=== PATIENT | female | born 1960 ===

== ENCOUNTER 2017-12-13 14:33 | Emergency (ER) | payer SELFPAY ==
[2017-12-13 14:43] VITALS: TEMP 98.3; O2SAT 99
--- NOTE | 2017-12-13 15:13 | ED PDOC ---
HPI: Abdomen Time Seen by Provider: 12/13/17 15:11 Chief Complaint (Nursing): Abdominal Pain Chief Complaint (Provider): abd pain History Per: Patient Additional Complaint(s): 57-year-old female with history of hypertension and high blood pressure presents to ED with right upper quadrant pain 3 weeks associated with nausea but no vomiting. Patient states pain radiates into her back. She also states the pain radiates to right shoulder. Pain has increased in severity in the past few days prompting ED visit today. No fever or chills, no chest pain, shortness of breath or dyspnea on exertion. PMD: [facility] Past Medical History Reviewed: Historical Data, Nursing Documentation, Vital Signs Vital Signs: Last Vital Signs Temp 98.3 F 12/13/17 14:39 Pulse 84 12/13/17 14:39 Resp 18 12/13/17 14:39 BP 193/81 H 12/13/17 14:39 Pulse Ox 99 12/13/17 16:33 - Medical History PMH: Diabetes, HTN - Surgical History Other surgeries: right breast biopsy - Family History Family History: States: No Known Family Hx - Living Arrangements Living Arrangements: With Family - Social History Current smoker - smoking cessation education provided: No Alcohol: None Drugs: Denies - Home Medications Home Medications: Ambulatory Orders Medication Instructions Recorded Lansoprazole [Prevacid] 30 mg PO DAILY #30 tab 12/13/17 Nitrofurantoin Macrocrystals 100 mg PO BID #14 cap 12/13/17 [Macrobid] Ondansetron [Zofran Odt] 4 mg PO ASDIR PRN #10 odt 12/13/17 - Allergies Allergies/Adverse Reactions: Allergies Allergy/AdvReac Type Severity Reaction Status Date / Time No Known Allergies Allergy Verified 12/13/17 14:39 Review of Systems ROS Statement: Except As Marked, All Systems Reviewed And Found Negative Constitutional: Negative for: Fever, Chills Cardiovascular: Negative for: Chest Pain Respiratory: Negative for: Cough Gastrointestinal: Positive for: Nausea, Abdominal Pain. Negative for: Vomiting , Diarrhea, Constipation Genitourinary Female: Negative for: Dysuria Physical Exam - Reviewed Nursing Documentation Reviewed: Yes Vital Signs Reviewed: Yes - Physical Exam Appears: Positive for: Well Skin: Positive for: Normal Color. Negative for: Rash Eye Exam: Positive for: Normal appearance Cardiovascular/Chest: Positive for: Regular Rate, Rhythm Respiratory: Positive for: Normal Breath Sounds. Negative for: Wheezing, Respiratory Distress Gastrointestinal/Abdominal: Positive for: Other (Obese abdomen with tenderness to right upper quadrant and epigastric region, no rebound or guarding, normoactive bowel sounds in all 4 quadrants) Back: Negative for: L CVA Tenderness, R CVA Tenderness Extremity: Positive for: Normal ROM Neurologic/Psych: Positive for: Alert, Oriented - Laboratory Results Result Diagrams: 12/13/17 15:59 12/13/17 15:59 - ECG Interpretation Of ECG: Sinus rhythm 80 bpm with fusion complexes, reviewed by PA and ED attending O2 Sat by Pulse Oximetry: 99 Pulse Ox Interpretation: Normal - Other Rad CXR X-Ray: Interpreted by Me, Viewed By Me X-Ray Interpretation: no acute finding Abd US X-Ray: Read By Radiologist X-Ray Interpretation: see below Medical Decision Making Medical Decision Makin57 year old female with upper abd pain Plan: CXR EKG CBC CMP Lipase UA IVF IV zofran Abd US US: FINDINGS: LIVER: Measures 13.5 cm in length. Increased echogenicity of the liver parenchyma. No mass. No intrahepatic bile duct dilatation. GALLBLADDER: Unremarkable. No gallstones. COMMON BILE DUCT: Measures 6 mm. No stones. No dilatation. PANCREAS: Unremarkable as visualized. No mass. o ductal dilatation. RIGHT KIDNEY: Measures 13.5 x 5.8 x 4.9 cm in length. Normal echogenicity. No calculus, mass, or hydronephrosis. AORTA: No aneurysmal dilatation. IVC: Unremarkable. OTHER FINDINGS: None. IMPRESSION: Hepatic steatosis. Otherwise, unremarkable right upper quadrant ultrasound Patient is aware of all diagnostic testing results, all questions answered. Patient feels better after Zofran was given. Mild UTI noted, Macrobid prescription provided. Patient was given rx prescription for Prevacid and was also given dietary instructions for relief of gastritis symptoms. Patient was advised to follow-up with clinic to obtain referral to cork insulation setter. Patient also aware she can return to ED any time if acutely worse. Disposition - Clinical Impression Clinical Impression: Gastritis, Urinary tract infection - Patient ED Disposition Is Patient to be Admitted: No Counseled Patient/Family Regarding: Studies Performed, Diagnosis, Need For Followup, Rx Given - Disposition Referrals: [facility] [Outside] Disposition: Routine/Home Disposition Time: 18:55 Condition: STABLE Additional Instructions: Follow dietary instructions and take prescription meds as directed. Follow up with clinic to arrange for follow-up with cork insulation setter. Prescriptions: Lansoprazole [Prevacid] 30 mg PO DAILY #30 tab Nitrofurantoin Macrocrystals [Macrobid] 100 mg PO BID #14 cap Ondansetron [Zofran Odt] 4 mg PO ASDIR PRN #10 odt PRN Reason: Nausea/Vomiting Instructions: Gastritis, Ulcer and Gastritis Diet, Urinary Tract Infections in Adults Forms: [employer] (Citizen Of [place]) Results - Lab Results Lab Results: 12/13/17 12/13/17 12/13/17 16:03 15:59 15:59 WBC 9.2 RBC 4.25 Hgb 11.6 L Hct 35.4 MCV 83.4 MCH 27.3 MCHC 32.8 L RDW 15.7 H Plt Count 223 MPV 8.6 Neut % (Auto) 54.3 Lymph % (Auto) 37.5 Nicholas % (Auto) 6.3 Eos % (Auto) 1.3 Baso % (Auto) 0.6 Neut # (Auto) 5.0 Lymph # (Auto) 3.4 Nicholas # (Auto) 0.6 Eos # (Auto) 0.1 Baso # (Auto) 0.1 Sodium 137 Potassium 4.8 Chloride 103 Carbon Dioxide 24 Anion Gap 15 BUN 12 Creatinine 0.6 L Est GFR ( Amer) > 60 Est GFR (Non-Af Amer) > 60 Random Glucose 286 H Calcium 9.9 Total Bilirubin 0.3 AST 28 ALT 33 Alkaline Phosphatase 63 Total Protein 6.9 Albumin 4.1 Globulin 2.8 Albumin/Globulin Ratio 1.5 Lipase 84 Urine Color Yellow Urine Clarity Slighty-cloudy Urine pH 6.0 Ur Specific [place] 1.016 Urine Protein Negative Urine Glucose (UA) >=500 Urine Ketones Negative Urine Blood Negative Urine Nitrate Negative Urine Bilirubin Negative Urine Urobilinogen 0.2-1.0 Ur Leukocyte Esterase Trace Urine RBC (Auto) 3 Urine Microscopic WBC 6 H Ur Squamous Epith Cells 1 Urine Bacteria Rare
[2017-12-13] MEDS ORDERED: Sodium Chloride 0.9% 1,000 ML IV STA (15:31)
[2017-12-13 16:04] LABS: BASO # 0.1 K/uL (0.0-0.2); BASO % 0.6 % (0.0-2.0); EOS # 0.1 K/uL (0.0-0.7); EOS % 1.3 % (0.0-4.0); HEMOGLOBIN 11.6 g/dL (12.0-16.0); LYMPH # 3.4 K/uL (1.0-4.3); LYMPH % 37.5 % (20.0-40.0); MEAN CELL VOLUME 83.4 fl (81.0-99.0); MEAN CORPUSCULAR HEMOGLOBIN 27.3 pg (27.0-31.0); MEAN CORPUSCULAR HGB CONC 32.8 g/dL (33.0-37.0); MEAN PLATELET VOLUME 8.6 fl (7.2-11.7); MONO # 0.6 K/uL (0.0-0.8); MONO % 6.3 % (0.0-10.0); NEUT % 54.3 % (50.0-75.0); RBC 4.25 Mil/uL (3.80-5.20); RED CELL DISTRIBUTION WIDTH 15.7 % (11.5-14.5); WHITE BLOOD COUNT 9.2 K/uL (4.8-10.8)
--- NOTE | 2017-12-13 16:09 | RAD ---
Date of service: 12/13/2017 HISTORY: Upper abdominal pain. COMPARISON: No prior. FINDINGS: LUNGS: No active pulmonary disease. PLEURA: No significant pleural effusion identified, no pneumothorax apparent. CARDIOVASCULAR: No radiographic findings to suggest acute or significant cardiovascular disease. OSSEOUS STRUCTURES: No significant abnormalities. VISUALIZED UPPER ABDOMEN: Normal. OTHER FINDINGS: None. IMPRESSION: No active disease.
[2017-12-13 16:16] LABS: SQUAMOUS EPITHIAL 1 /hpf (0-5); URINE BACTERIA RARE (<OCC); URINE BILIRUBIN NEGATIVE (NEGATIVE); URINE BLOOD NEGATIVE (NEGATIVE); URINE CLARITY SLIGHTY-CLOUDY (Clear); URINE COLOR YELLOW (YELLOW); URINE GLUCOSE (UA) >=500 mg/dL (Normal); URINE LEUKOCYTE ESTERASE TRACE Leu/uL (Negative); URINE PROTEIN NEGATIVE (NEGATIVE); URINE UROBILINOGEN 0.2-1.0 mg/dL (0.2-1.0)
[2017-12-13 16:16] LABS: ALB/GLOB RATIO 1.5 (1.0-2.1); ALBUMIN 4.1 g/dL (3.5-5.0); ALT/SGPT 33 U/L (9-52); AST/SGOT 28 U/L (14-36); BLOOD UREA NITROGEN 12 mg/dl (7-17); CALCIUM 9.9 mg/dL (8.4-10.2); GFR AFRICAN-AMERICAN > 60; GFR NON-AFRICAN AMERICAN > 60; LIPASE 84 U/L (23-300)
--- NOTE | 2017-12-13 17:54 | US ---
Date of service: 12/13/2017 HISTORY: upper abd pain, nausea COMPARISON: None. TECHNIQUE: Sonographic evaluation of the right upper quadrant of the abdomen. FINDINGS: LIVER: Measures 13.5 cm in length. Increased echogenicity of the liver parenchyma. No mass. No intrahepatic bile duct dilatation. GALLBLADDER: Unremarkable. No gallstones. COMMON BILE DUCT: Measures 6 mm. No stones. No dilatation. PANCREAS: Unremarkable as visualized. No mass. No ductal dilatation. RIGHT KIDNEY: Measures 13.5 x 5.8 x 4.9 cm in length. Normal echogenicity. No calculus, mass, or hydronephrosis. AORTA: No aneurysmal dilatation. IVC: Unremarkable. OTHER FINDINGS: None . IMPRESSION: Hepatic steatosis. Otherwise, unremarkable right upper quadrant ultrasound
[2017-12-13 19:19] VITALS: BP 150/70; PULSE 86; RESP 17
--- NOTE | 2017-12-14 14:58 | CARD ---
APPROVED REPORT Date of service: 12/13/2017 EKG Measurement Heart [id number] <Conclusion> Sinus rhythm with fusion complexes Otherwise normal ECG
== END 2017-12-13 19:15 | disposition home or self-care (01) ==
LOC: H.ER 14:33
DX: K29.70 Gastritis, unspecified, without bleeding (principal); N39.0 Urinary tract infection, site not specified; E11.9 Type 2 diabetes mellitus without complications; I10 Essential (primary) hypertension; K76.0 Fatty (change of) liver, not elsewhere classified
CPT/HCPCS: 71045; 76705; 80053; 81003; 83690; 85025; 87086; 93005; 96374; 99283; J2405; J7030

== ENCOUNTER 2017-12-25 14:25 | Emergency (ER) | payer SELFPAY ==
[2017-12-25] MEDS ORDERED: Sodium Chloride 0.9% 1,000 ML IV STA (15:30)
--- NOTE | 2017-12-25 15:56 | ED PDOC ---
HPI: Female Pain Time Seen by Provider: 12/25/17 14:52 Chief Complaint (Nursing): Female Genitourinary Chief Complaint (Provider): Female Genitourinary History Per: Patient History/Exam Limitations: no limitations Onset/Duration Of Symptoms: Days Current Symptoms Are (Timing): Still Present Quality Of Discomfort: "Pain" Associated Symptoms: Urinary Symptoms Additional Complaint(s): 57 y/o female with a PMHx of diabetes presents to the ED complaining of dysuria and frequency associated with right sided back pain. Patient reports of having finished a 7 day course of Macrobid for a UTI approximately one week ago. However, patient states pain persists and is here for further evaluation. Denies fever, nausea, vomiting, abdominal pain, and hematuria. PMD: [facility] Past Medical History Reviewed: Historical Data, Nursing Documentation, Vital Signs Vital Signs: Last Vital Signs Temp 97.0 F L 12/25/17 14:37 Pulse 87 12/25/17 14:37 Resp 18 12/25/17 14:37 BP 143/73 12/25/17 14:37 Pulse Ox 99 12/25/17 14:37 - Medical History PMH: Diabetes, HTN - Surgical History Surgical History: No Surg Hx - Family History Family History: States: Unknown Family Hx - Social History Current smoker - smoking cessation education provided: No Alcohol: None Drugs: Denies - Immunization History Hx Tetanus Toxoid Vaccination: Yes Hx Influenza Vaccination: Yes Hx Pneumococcal Vaccination: No - Home Medications Home Medications: Ambulatory Orders Medication Instructions Recorded Lansoprazole [Prevacid] 30 mg PO DAILY #30 tab 12/13/17 Nitrofurantoin Macrocrystals 100 mg PO BID #14 cap 12/13/17 [Macrobid] Ondansetron [Zofran Odt] 4 mg PO ASDIR PRN #10 odt 12/13/17 Cephalexin [cephalexin] 500 mg PO QID #27 cap 12/25/17 Phenazopyridine [Pyridium] 200 mg PO TID PRN #6 tab 12/25/17 - Allergies Allergies/Adverse Reactions: Allergies Allergy/AdvReac Type Severity Reaction Status Date / Time No Known Allergies Allergy Verified 12/13/17 14:39 Review of Systems ROS Statement: Except As Marked, All Systems Reviewed And Found Negative Constitutional: Negative for: Fever Gastrointestinal: Negative for: Nausea, Vomiting, Abdominal Pain Genitourinary Female: Positive for: Dysuria, Frequency. Negative for: Hematuria Musculoskeletal: Positive for: Back Pain (right-sided back pain) Physical Exam - Reviewed Nursing Documentation Reviewed: Yes Vital Signs Reviewed: Yes - Physical Exam Appears: Positive for: Non-toxic, No Acute Distress Head Exam: Positive for: ATRAUMATIC, NORMOCEPHALIC Skin: Positive for: Normal Color, Warm, Dry Eye Exam: Positive for: Normal appearance, EOMI, PERRL Neck: Positive for: Normal, Painless ROM Cardiovascular/Chest: Positive for: Regular Rate, Rhythm. Negative for: Murmur Respiratory: Positive for: Normal Breath Sounds. Negative for: Respiratory Distress Gastrointestinal/Abdominal: Positive for: Normal Exam, Soft, Tenderness (Mild right upper quadrant ) Back: Positive for: Normal Inspection, R CVA Tenderness. Negative for: L CVA Tenderness, Vertebral Tenderness Extremity: Positive for: Normal ROM. Negative for: Pedal Edema, Deformity Neurologic/Psych: Positive for: Alert, Oriented. Negative for: Motor/Sensory Deficits - Laboratory Results Result Diagrams: 12/25/17 15:44 12/25/17 15:44 - ECG O2 Sat by Pulse Oximetry: 99 (RA) Pulse Ox Interpretation: Normal Medical Decision Making Medical Decision Making: Time: 1530 Plan: -- CT Abd/Pelvis w/o PO or IV Contrast -- ED Urine Dipstick -- Glucose, POC Routine Time: 1544 Plan: -- CMP -- CBC with differentials -- Sodium Chloride IV 1000 mls/hr -- Urine Culture -- Urinalysis Time: 1718 CT RESULTS FINDINGS: LOWER THORAX: Heart size normal. There is a small hiatal hernia with minimal wall thickening of the distal esophagus likely due to protrusion gastric mucosa. Lung bases clear. Minor atelectasis and or scarring changes seen in the middle lobe region. No focal consolidation. No evidence of LIVER: Liver is mildly enlarged measuring nearly 23 cm in CC dimension. No obvious hepatic mass or collection identified on this noncontrast study. . GALLBLADDER AND BILE DUCTS: Gallbladder appears to be present of collapsed likely due to nonfasting state. No obvious intraluminal gallbladder calculi identified at this time. PANCREAS: The unenhanced pancreas appears grossly unremarkable without masses collections or calcifications. No significant pancreatic ductal dilatation. SPLEEN: Spleen exhibits relatively normal size and attenuation pattern without mass collection or calcification. ADRENALS: No adrenal lesions are identified. KIDNEYS AND URETERS: The kidneys demonstrate relatively symmetric size. No evidence of nephrolithiasis or hydronephrosis. VASCULATURE: No definitive evidence of abdominal aortic aneurysm however note that the distal abdominal aorta is poorly seen due to the lack of oral and intravenous contrast material. BOWEL: Evaluation of the bowel is limited due to the lack of oral contrast material. Stomach is incompletely distended which presumably accounts for slight thick- walled appearance. Gastritis or other intrinsic/invasive wall lesion not excluded. Visualized loops of small bowel exhibit relatively normal contour and caliber of. No evidence of acute mechanical small bowel obstruction. Stool and air seen throughout the large bowel APPENDIX: Distal appendix exhibits increased attenuation possibly representing some inspissated debris versus early microcalcification. The appendix is otherwise unremarkable exhibiting normal caliber with no wall edema or perineum appendiceal inflammatory changes. PERITONEUM: Unremarkable. No free fluid. No free air. LYMPH NODES: Unremarkable. No enlarged lymph nodes. BLADDER: The urinary bladder is physiologically distended. No evidence of intraluminal urinary bladder calculi. REPRODUCTIVE: Aside from what appear to represent peripheral vascular calcifications uterus is otherwise unremarkable BONES: Minor multilevel degenerative spondylosis of the lower thoracic and lumbar spine. OTHER FINDINGS: None. IMPRESSION: No acute intra abdominal pathology. Splenomegaly. The at distal aspect of the appendix that exhibits increased attenuation possibly due to inspissated debris or microcalcification however no radiographic evidence of acute appendicitis. Pt given copy of CT report. ___ Scribe Attestation: Documented by Bert Rodríguez acting as a scribe for Dr. Lorena To MD. Provider Scribe Attestation: All medical record entries made by the Scribe were at my direction and personally dictated by me. I have reviewed the chart and agree that the record accurately reflects my personal performance of the history, physical exam, medical decision making, and the department course for this patient. I have also personally directed, reviewed, and agree with the discharge instructions and disposition. Disposition - Clinical Impression Clinical Impression: Urinary tract infection - Disposition Disposition: Routine/Home Disposition Time: 18:05 Condition: STABLE Additional Instructions: FOLLOW-UP WITH PMD WITHIN 2 DAYS FOR REEVALUATION. Prescriptions: Cephalexin [cephalexin] 500 mg PO QID #27 cap Phenazopyridine [Pyridium] 200 mg PO TID PRN #6 tab PRN Reason: Bladder Spasm Instructions: Urinary Tract Infections in Adults Forms: [facility] ([place]ic)
[2017-12-25 15:58] LABS: ALBUMIN 3.9 g/dL (3.5-5.0); BLOOD UREA NITROGEN 12 mg/dl (7-17); CALCIUM 9.1 mg/dL (8.4-10.2); GFR AFRICAN-AMERICAN > 60; GFR NON-AFRICAN AMERICAN > 60
[2017-12-25 15:59] LABS: ALB/GLOB RATIO 1.4 (1.0-2.1); ALT/SGPT 34 U/L (9-52); AST/SGOT 27 U/L (14-36)
[2017-12-25 16:00] LABS: SQUAMOUS EPITHIAL 1 /hpf (0-5); URINE BILIRUBIN NEGATIVE (NEGATIVE); URINE BLOOD NEGATIVE (NEGATIVE); URINE CLARITY SLIGHTY-CLOUDY (Clear); URINE COLOR YELLOW (YELLOW); URINE GLUCOSE (UA) 50 mg/dL (Normal); URINE LEUKOCYTE ESTERASE SMALL Leu/uL (Negative); URINE PROTEIN 30 mg/dL (NEGATIVE); URINE UROBILINOGEN 0.2-1.0 mg/dL (0.2-1.0)
[2017-12-25 16:24] LABS: BASO # 0.1 K/uL (0.0-0.2); EOS # 0.1 K/uL (0.0-0.7); EOS % 1.5 % (0.0-4.0); HEMOGLOBIN 11.1 g/dL (12.0-16.0); LYMPH # 3.1 K/uL (1.0-4.3); LYMPH % 36.6 % (20.0-40.0); MEAN CELL VOLUME 84.2 fl (81.0-99.0); MEAN CORPUSCULAR HGB CONC 32.1 g/dL (33.0-37.0); MEAN PLATELET VOLUME 9.2 fl (7.2-11.7); MONO # 0.5 K/uL (0.0-0.8); MONO % 6.3 % (0.0-10.0); NEUT # 4.7 K/uL (1.8-7.0); NEUT % 54.6 % (50.0-75.0); NRBC % 0.2 % (0.0-0.0); RBC 4.1 Mil/uL (3.80-5.20); RED CELL DISTRIBUTION WIDTH 16.5 % (11.5-14.5); WHITE BLOOD COUNT 8.6 K/uL (4.8-10.8)
--- NOTE | 2017-12-25 17:19 | CT ---
Date of service: 12/25/2017 PROCEDURE: CT Abdomen and Pelvis without intravenous contrast HISTORY: R flank pain, dysuria, hematuria COMPARISON: No prior study available comparison however correlation made with limited abdominal ultrasound 12/13/2017. TECHNIQUE: Contiguous helical/transaxial sections of the abdomen pelvis performed without oral or intravenous contrast material. Additional 2D sagittal and coronal reformats generated. Radiation dose: Total exam DLP = 817.7 mGy-cm. This CT exam was performed using one or more of the following dose reduction techniques: Automated exposure control, adjustment of the mA and/or kV according to patient size, and/or use of iterative reconstruction technique. FINDINGS: LOWER THORAX: Heart size normal. There is a small hiatal hernia with minimal wall thickening of the distal esophagus likely due to protrusion gastric mucosa. Lung bases clear. Minor atelectasis and or scarring changes seen in the middle lobe region. No focal consolidation. No evidence of LIVER: Liver is mildly enlarged measuring nearly 23 cm in CC dimension. No obvious hepatic mass or collection identified on this noncontrast study. . GALLBLADDER AND BILE DUCTS: Gallbladder appears to be present of collapsed likely due to nonfasting state. No obvious intraluminal gallbladder calculi identified at this time. PANCREAS: The unenhanced pancreas appears grossly unremarkable without masses collections or calcifications. No significant pancreatic ductal dilatation. SPLEEN: Spleen exhibits relatively normal size and attenuation pattern without mass collection or calcification. ADRENALS: No adrenal lesions are identified. KIDNEYS AND URETERS: The kidneys demonstrate relatively symmetric size. No evidence of nephrolithiasis or hydronephrosis. VASCULATURE: No definitive evidence of abdominal aortic aneurysm however note that the distal abdominal aorta is poorly seen due to the lack of oral and intravenous contrast material. BOWEL: Evaluation of the bowel is limited due to the lack of oral contrast material. Stomach is incompletely distended which presumably accounts for slight thick-walled appearance. Gastritis or other intrinsic/invasive wall lesion not excluded. Visualized loops of small bowel exhibit relatively normal contour and caliber of. No evidence of acute mechanical small bowel obstruction. Stool and air seen throughout the large bowel APPENDIX: Distal appendix exhibits increased attenuation possibly representing some inspissated debris versus early microcalcification. The appendix is otherwise unremarkable exhibiting normal caliber with no wall edema or perineum appendiceal inflammatory changes. PERITONEUM: Unremarkable. No free fluid. No free air. LYMPH NODES: Unremarkable. No enlarged lymph nodes. BLADDER: The urinary bladder is physiologically distended. No evidence of intraluminal urinary bladder calculi. REPRODUCTIVE: Aside from what appear to represent peripheral vascular calcifications uterus is otherwise unremarkable BONES: Minor multilevel degenerative spondylosis of the lower thoracic and lumbar spine. OTHER FINDINGS: None. IMPRESSION: No acute intra abdominal pathology. Splenomegaly. The at distal aspect of the appendix that exhibits increased attenuation possibly due to inspissated debris or microcalcification however no radiographic evidence of acute appendicitis.
[2017-12-25] MEDS ORDERED: Povidone Iodine Oint 10% Foilpak UD ONE (17:51)
[2017-12-25 18:45] VITALS: BP 120/70; PULSE 84; RESP 20; TEMP 98
[2017-12-26 15:53] VITALS: O2SAT 99
== END 2017-12-25 18:45 | disposition home or self-care (01) ==
LOC: H.ER 14:25
DX: N39.0 Urinary tract infection, site not specified (principal); I10 Essential (primary) hypertension; E11.9 Type 2 diabetes mellitus without complications
CPT/HCPCS: 74176; 80053; 81003; 82948; 85025; 87086; 96360; 99284; J7030

== ENCOUNTER 2018-06-17 19:05 | Emergency (ER) | payer SELFPAY ==
[2018-06-17 19:18] VITALS: TEMP 98.4
[2018-06-17] MEDS ORDERED: Sodium Chloride 0.9% 500 ML IV STA (19:43)
[2018-06-17] MEDS ORDERED: Albuterol-Ipratrop 3 mg / 0.5 (3 ml) UD INH STA (19:43)
--- NOTE | 2018-06-17 19:49 | ED PDOC ---
HPI: Female Pain Time Seen by Provider: 06/17/18 19:39 Chief Complaint (Nursing): Shortness Of Breath Chief Complaint (Provider): Dysuria History Per: Patient History/Exam Limitations: no limitations Onset/Duration Of Symptoms: Days (today) Current Symptoms Are (Timing): Still Present Additional Complaint(s): Pt. with dysuria, freq urination, urgency. Also has cough, congestion, dyspnea (gone now). No fever, chills, abd pain. Feels bloated. No nausea, vomit, diarrhea. No back pain. No chest pain. Past Medical History Reviewed: Nursing Documentation, Vital Signs Vital Signs: Last Vital Signs Temp 98.4 F 06/17/18 19:15 Pulse 96 H 06/17/18 19:15 Resp 16 06/17/18 19:15 BP Pulse Ox 98 06/17/18 19:15 - Medical History PMH: Diabetes, HTN - Surgical History Surgical History: No Surg Hx - Family History Family History: States: Unknown Family Hx - Immunization History Hx Tetanus Toxoid Vaccination: Yes Hx Influenza Vaccination: Yes Hx Pneumococcal Vaccination: No - Home Medications Home Medications: Ambulatory Orders Medication Instructions Recorded Lansoprazole [Prevacid] 30 mg PO DAILY #30 tab 12/13/17 Nitrofurantoin Macrocrystals 100 mg PO BID #14 cap 12/13/17 [Macrobid] Ondansetron [Zofran Odt] 4 mg PO ASDIR PRN #10 odt 12/13/17 Cephalexin [cephalexin] 500 mg PO QID #27 cap 12/25/17 Phenazopyridine [Pyridium] 200 mg PO TID PRN #6 tab 12/25/17 Albuterol Sulfate [Proair Hfa] 0.09 mg IH Q6H PRN #2 inh 06/17/18 Nitrofurantoin Macrocrystals 100 mg PO BID #10 cap 06/17/18 [Macrobid] - Allergies Allergies/Adverse Reactions: Allergies Allergy/AdvReac Type Severity Reaction Status Date / Time No Known Allergies Allergy Verified 06/17/18 19:15 Review of Systems ROS Statement: Except As Marked, All Systems Reviewed And Found Negative ENT: Positive for: Nose Congestion Respiratory: Positive for: Cough, Shortness of Breath Gastrointestinal: Negative for: Nausea, Vomiting, Abdominal Pain Genitourinary Female: Positive for: Dysuria, Frequency. Negative for: Hematuria, Pelvic Pain Neurological: Negative for: Weakness Physical Exam - Reviewed Nursing Documentation Reviewed: Yes Vital Signs Reviewed: Yes - Physical Exam Appears: Positive for: Non-toxic, No Acute Distress Head Exam: Positive for: ATRAUMATIC, NORMAL INSPECTION, NORMOCEPHALIC Skin: Positive for: Normal Color, Warm, DRY Eye Exam: Positive for: EOMI, Normal appearance, PERRL ENT: Positive for: Normal ENT Inspection Neck: Positive for: Normal, Painless ROM Cardiovascular/Chest: Positive for: Regular Rate, Rhythm Respiratory: Positive for: CNT, Normal Breath Sounds Gastrointestinal/Abdominal: Positive for: Normal Exam, Soft. Negative for: Tenderness Back: Positive for: Normal Inspection. Negative for: L CVA Tenderness, R CVA Tenderness Extremity: Positive for: Normal ROM. Negative for: Tenderness, Pedal Edema Neurologic/Psych: Positive for: Alert, Oriented - Laboratory Results Result Diagrams: 06/17/18 20:12 06/17/18 20:12 Lab Results: 291 glucose - ECG ECG: Positive for: Interpreted By Me, Viewed By Me ECG Rhythm: Positive for: Normal QRS, Normal ST Segment, Sinus Rhythm O2 Sat by Pulse Oximetry: 98 Pulse Ox Interpretation: Normal - Radiology X-Ray: Interpreted by Me, Viewed By Me X-Ray Interpretation: No Acute Disease - Progress ED Course And Treament: 2101: Stable. AAOx3. Pain free. Tolerated PO. Fu with pcp. Mild hyperglycemia. Possible uti formation. Will tx. Talking full sentences. No dyspnea. at bedside and agrees with pt. Wants to go home and see how she does. Will fu with clinic tomorrow. Has capacity to make decisions. Does not want to stay in the hospital for further evaluation and tx. Disposition - Clinical Impression Clinical Impression: Dyspnea, UTI (urinary tract infection) - Patient ED Disposition Is Patient to be Admitted: No Counseled Patient/Family Regarding: Studies Performed, Diagnosis, Need For Followup, Rx Given - Disposition Referrals: [facility] [Outside] - 06/18/18 Disposition: Routine/Home Disposition Time: 21:34 Condition: STABLE Additional Instructions: Return if not better in 3 days. Prescriptions: Albuterol Sulfate [Proair Hfa] 0.09 mg IH Q6H PRN #2 inh PRN Reason: Wheezing Nitrofurantoin Macrocrystals [Macrobid] 100 mg PO BID #10 cap Instructions: Urinary Tract Infection, Adult (DC), Shortness of Breath (Dyspnea) Forms: [facility] (Armenian)
[2018-06-17 20:15] LABS: BASO # 0.1 K/uL (0.0-0.2); BASO % 0.6 % (0.0-2.0); EOS # 0.1 K/uL (0.0-0.7); EOS % 1.2 % (0.0-4.0); HEMOGLOBIN 10.5 g/dL (12.0-16.0); LYMPH # 3.5 K/uL (1.0-4.3); LYMPH % 36.7 % (20.0-40.0); MEAN CELL VOLUME 83.1 fl (81.0-99.0); MEAN CORPUSCULAR HEMOGLOBIN 27.1 pg (27.0-31.0); MEAN CORPUSCULAR HGB CONC 32.6 g/dL (33.0-37.0); MONO # 0.6 K/uL (0.0-0.8); MONO % 5.8 % (0.0-10.0); NEUT # 5.3 K/uL (1.8-7.0); NEUT % 55.7 % (50.0-75.0); NRBC % 0.1 % (0.0-0.0); RBC 3.86 Mil/uL (3.80-5.20); RED CELL DISTRIBUTION WIDTH 16.1 % (11.5-14.5); WHITE BLOOD COUNT 9.5 K/uL (4.8-10.8)
[2018-06-17 20:19] LABS: SQUAMOUS EPITHIAL < 1 /hpf (0-5); URINE BILIRUBIN NEGATIVE (NEGATIVE); URINE BLOOD NEGATIVE (NEGATIVE); URINE CLARITY CLEAR (Clear); URINE COLOR STRAW (YELLOW); URINE GLUCOSE (UA) >=500 mg/dL (NEGATIVE); URINE LEUKOCYTE ESTERASE NEG Leu/uL (Negative); URINE PROTEIN NEGATIVE (NEGATIVE); URINE UROBILINOGEN 0.2-1.0 mg/dL (0.2-1.0)
[2018-06-17 20:21] LABS: PROTHROMBIN TIME 10.8 Seconds (9.8-13.1)
[2018-06-17 20:24] LABS: PARTIAL THROMBOPLASTIN TIME 32.9 Seconds (25.6-37.1)
[2018-06-17 20:30] LABS: ALB/GLOB RATIO 1.3 (1.0-2.1); ALBUMIN 3.6 g/dL (3.5-5.0); ALT/SGPT 24 U/L (9-52); AST/SGOT 24 U/L (14-36); BLOOD UREA NITROGEN 10 mg/dl (7-17); CALCIUM 9.1 mg/dL (8.4-10.2); GFR NON-AFRICAN AMERICAN > 60
[2018-06-17 20:41] LABS: B-TYPE NATRIURETIC PEPTIDE 87.2 pg/ml (0-900)
[2018-06-17 22:01] VITALS: BP 124/64; PULSE 74; RESP 16; O2SAT 97
--- NOTE | 2018-06-18 10:00 | RAD ---
Date of service: 06/17/2018 HISTORY: dyspnea COMPARISON: 12/13/2017 FINDINGS: LUNGS: No active pulmonary disease. PLEURA: No significant pleural effusion identified, no pneumothorax apparent. CARDIOVASCULAR: No aortic atherosclerotic calcification present. Mild cardiomegaly No significant appearing pulmonary venous congestion. OSSEOUS STRUCTURES: No significant abnormalities. VISUALIZED UPPER ABDOMEN: Normal. OTHER FINDINGS: None. IMPRESSION: Mild cardiomegaly. No significant appearing pulmonary venous congestion. No infiltrate effusion or pneumothorax.
--- NOTE | 2018-06-18 11:12 | CARD ---
APPROVED REPORT Date of service: 06/17/2018 EKG Measurement Heart [id number] <Conclusion> Sinus rhythm with occasional premature ventricular complexes Otherwise normal ECG
== END 2018-06-17 22:10 | disposition home or self-care (01) ==
LOC: H.ER 19:05
DX: R06.00 Dyspnea, unspecified (principal); N39.0 Urinary tract infection, site not specified; I49.3 Ventricular premature depolarization
CPT/HCPCS: 71045; 80053; 81003; 83880; 84484; 85025; 85610; 85730; 87804; 93005; 99284; J7040